=== PATIENT | male | born 1995 | race Caucasian/White ===

== ENCOUNTER 2017-03-10 19:19 | Emergency (ER) | payer BC ==
[~2017-03-10] VITALS: Ht 182.9 cm; Wt 86.2 kg
[~2017-03-10 19:19] MED LIST: MOBIC7.5 MG PO; PENICILLIN V P500 MG PO
[2017-03-10 19:57] LABS: EOSINOPHILS 0.1 % (0.0-3.0); HEMATOCRIT 40.2 % (42.0-52.0); HEMOGLOBIN 13.9 gm/dL (14.0-18.0); LYMPHOCYTES 18.8 % (24.0-44.0); MANUAL DIFF NO; MCH 30.2 pg (26.0-34.0); MCHC 34.6 g/dL (28.0-37.0); MCV 87.2 fL (80.0-100.0); MONOCYTES 11.4 % (1.0-8.0); PLATELET COUNT 205 thou/uL (150-400); POLYS 68.7 % (36.0-66.0); RBC 4.61 mil/uL (4.50-6.00); RDW 12.9 % (10.5-14.5); WBC 8.7 thou/uL (4.0-11.0)
[2017-03-10 20:01] LABS: CREATININE 0.8 mg/dL (0.7-1.3); POTASSIUM 3.8 mmol/L (3.5-5.1)
[2017-03-10] MEDS ORDERED: ORAPRED ODT30 MG PO (21:39)
[2017-03-10] MEDS ORDERED: CLINDAMYCIN HC300 MG PO (21:39)
[2017-03-10] MEDS ORDERED: HYDROCODONE-ACE15 ML PO (21:50)
[2017-03-10 21:56] VITALS: BP 125/56
== END 2017-03-10 21:57 | disposition home or self-care (01) ==
LOC: ER 19:19
PROVIDERS: Nurse Practitioner Family
DX: J02.9 Acute pharyngitis, unspecified (principal); R06.00 Dyspnea, unspecified